=== PATIENT | male | born 1970 | race Caucasian/White ===

== ENCOUNTER 2016-08-06 13:34 | Emergency (ER) | payer MEDICAID ==
[~2016-08-06] VITALS: Ht 193 cm; Wt 93.0 kg
[2016-08-06 13:35] VITALS: BP 115/78; PULSE 92; RESP 17; TEMP 97.8; O2SAT 98
--- NOTE | 2016-08-06 14:49 | PD ---
HPI Chief Complaint: Medical Clearance Time Seen by Provider: 13:00 Travel History International Travel<30 days: No Contact w/Intl Traveler<30days: No Traveled to known affect area: No History of Present Illness HPI 45 year old male with a recent DX of portal artery thrombosis currently bridging from Lovenox to Coumadin. He is on day 4 of a 5 day bridge. Patient just relocated to the area from [place] & forgot his Lovenox dose last night & was concerned about the missed dose so he presents to the ER for ER & INR level. Patient also requesting pain medication for his chronic low back pain & xanax for his anxiety. Both are chronic conditions & reports no change in the pain or severity of the anxiety. He is requesting referral for F/U here in [place]. He denies ABD pain, N/V, petechial rash or excessive bruising, blood in stool or any other medical complaints. PFSH Past Medical History Hx Anticoagulant Therapy: Yes (coumadin) Anxiety: Yes Diabetes: Yes (IDDM) Patient Takes Glucophage: No Inguinal Hernia: Yes (Surgical repair on the (L)) Medical other: Yes ("Blood clot on his liver" takes coumadin for it) Past Surgical History Surgical History: No Previous Surgery Other Surgery: Yes ((L) Ingunial hernia repair) Social History Alcohol Use: Yes (occasionally) Tobacco Use: Yes Substance Use: No Allergies-Medications (Allergen,Severity, Reaction): Coded Allergies: No Known Allergies (Unverified , 08/06/16) Review of Systems Except as stated in HPI: all other systems reviewed are Neg Physical Exam Narrative GENERAL: well appearing white male in no acute distress. SKIN: Warm and dry. No rash, No ecchymosis. HEAD: Normocephalic. EYES: No scleral icterus. No injection or drainage. NECK: Supple, trachea midline. No JVD or lymphadenopathy. CARDIOVASCULAR: Regular rate and rhythm without murmurs, gallops, or rubs. RESPIRATORY: Breath sounds equal bilaterally. No accessory muscle use. GASTROINTESTINAL: Abdomen soft, non-tender, nondistended. MUSCULOSKELETAL: No cyanosis, or edema. BACK: Nontender without obvious deformity. No CVA tenderness. Data Data Last Documented VS Vital Signs Date Time Temp Pulse Resp B/P Pulse Ox O2 Delivery O2 Flow Rate FiO2 08/06/16 13:35 97.8 92 17 115/78 98 Orders Prothrombin Time / Inr (Pt) (08/06/16 14:34) Labs Laboratory Tests Test 08/06/16 14:40 Prothrombin Time 12.0 SEC Prothromb Time International 1.1 RATIO Ratio MDM Medical Decision Making Medical Screen Exam Complete: Yes Emergency Medical Condition: Yes Medical Record Reviewed: Yes Differential Diagnosis medication nonadherence vs subtherapeutic INR Narrative Course 45 year old male with recent diagnosis of portal vein thrombosis bridging from Lovenox to Coumadin missing 1 dose of Lovenox last night. He is here from [place] & will need referral to Primary here. INR in pending. Referral to local clinic will be discussed with patient. patient eloped. Pt became argumentative with nursing staff about wait time & unhappy about not receiving pain medication for his chronic back pain. He and his spouse who was also being seen for a pain related complaint in [place] both left AMA. Germaine Sharma August 06, 2016 14:49 Germaine Sharma August 06, 2016 14:49
[2016-08-06 15:10] LABS: INTERNATIONAL NORMALIZED RATIO 1.1 RATIO
== END 2016-08-06 16:30 | disposition left against medical advice (07) ==
LOC: NEPD 13:34
DX: I81 Portal vein thrombosis (principal); M54.5 Low back pain; G89.29 Other chronic pain; E11.9 Type 2 diabetes mellitus without complications; Z79.01 Long term (current) use of anticoagulants; Z72.0 Tobacco use
CPT/HCPCS: 85610; 99283

== ENCOUNTER 2016-08-29 14:01 | Emergency (ER) | payer MEDICAID ==
--- NOTE | 2016-08-29 14:33 | PD ---
HPI Chief Complaint: gen weakness Time Seen by Provider: 14:29 Travel History International Travel<30 days: No Contact w/Intl Traveler<30days: No History of Present Illness HPI patient c/o generalized weakness for last 6 hrs and has thoracic area back pain as well on left side.. PFSH Past Medical History Hx Anticoagulant Therapy: Yes (coumadin) Anxiety: Yes Diabetes: Yes (IDDM) Inguinal Hernia: Yes (Surgical repair on the (L)) Past Surgical History Other Surgery: Yes ((L) Ingunial hernia repair) Social History Alcohol Use: Yes (occasionally) Tobacco Use: Yes Substance Use: No Allergies-Medications (Allergen,Severity, Reaction): Coded Allergies: No Known Allergies (Unverified , 08/06/16) Reported Meds & Prescriptions Reported Meds & Active Scripts Active Ventolin Hfa 18 GM Inh (Albuterol Sulfate) 90 Mcg/Act Aer 2 Puff INH Q6H PRN Levofloxacin 750 Mg Tablet 750 Mg PO DAILY Review of Systems Except as stated in HPI: all other systems reviewed are Neg Physical Exam Narrative GENERAL: SKIN: Warm and dry. HEAD: Atraumatic. Normocephalic. EYES: Pupils equal and round. No scleral icterus. No injection or drainage. ENT: No nasal bleeding or discharge. Mucous membranes pink and moist. NECK: Trachea midline. No JVD. CARDIOVASCULAR: Regular rate and rhythm. RESPIRATORY: No accessory muscle use. Clear to auscultation. except LLL crackles GASTROINTESTINAL: Abdomen soft, non-tender, nondistended. Hepatic and splenic margins not palpable. MUSCULOSKELETAL: Extremities without clubbing, cyanosis, or edema. No obvious deformities. NEUROLOGICAL: Awake and alert. No obvious cranial nerve deficits. Motor grossly within normal limits. Five out of 5 muscle strength in the arms and legs. Normal speech. PSYCHIATRIC: Appropriate mood and affect; insight and judgment normal. Data Data Last Documented VS Vital Signs Date Time Temp Pulse Resp B/P Pulse Ox O2 Delivery O2 Flow Rate FiO2 08/29/16 16:45 97.4 79 16 117/81 97 Orders Complete Blood Count With Diff (08/29/16 14:33) Basic Metabolic Panel (Bmp) (08/29/16 14:33) Troponin I (08/29/16 14:33) B-Type Natriuretic Peptide (08/29/16 14:33) Lipase (08/29/16 14:33) Urinalysis - C+S If Indicated (08/29/16 14:33) Influenzae A/B Antigen (08/29/16 14:33) Ct Abd/Pel W/O Iv Contrast (08/29/16 14:33) Drug Screen, Random Urine (08/29/16 14:33) Alcohol (Ethanol) (08/29/16 14:33) Chest, Single Ap (08/29/16 14:35) Levofloxacin (Levaquin) (08/29/16 17:30) Labs Laboratory Tests Test 08/29/16 08/29/16 15:00 15:40 White Blood Count 6.0 TH/MM3 Red Blood Count 4.48 MIL/MM3 Hemoglobin 13.9 GM/DL Hematocrit 40.8 % Mean Corpuscular Volume 91.2 FL Mean Corpuscular Hemoglobin 30.9 PG Mean Corpuscular Hemoglobin 33.9 % Concent Red Cell Distribution Width 13.5 % Platelet Count 153 TH/MM3 Mean Platelet Volume 9.0 FL Neutrophils (%) (Auto) 71.6 % Lymphocytes (%) (Auto) 18.2 % Monocytes (%) (Auto) 6.8 % Eosinophils (%) (Auto) 2.7 % Basophils (%) (Auto) 0.7 % Neutrophils # (Auto) 4.3 TH/MM3 Lymphocytes # (Auto) 1.1 TH/MM3 Monocytes # (Auto) 0.4 TH/MM3 Eosinophils # (Auto) 0.2 TH/MM3 Basophils # (Auto) 0.0 TH/MM3 CBC Comment DIFF FINAL Differential Comment Sodium Level 144 MEQ/L Potassium Level 3.7 MEQ/L Chloride Level 108 MEQ/L Carbon Dioxide Level 29.8 MEQ/L Anion Gap 6 MEQ/L Blood Urea Nitrogen 12 MG/DL Creatinine 0.62 MG/DL Estimat Glomerular Filtration 140 ML/MIN Rate Random Glucose 121 MG/DL Calcium Level 8.9 MG/DL Troponin I LESS THAN 0.02 NG/ML B-Type Natriuretic Peptide 10 PG/ML Lipase 129 U/L Ethyl Alcohol Level LESS THAN 3 MG/DL Urine Color YELLOW Urine Turbidity CLEAR Urine pH 6.0 Urine Specific [place] 1.031 Urine Protein TRACE mg/dL Urine Glucose (UA) NEG mg/dL Urine Ketones NEG mg/dL Urine Occult Blood NEG Urine Nitrite NEG Urine Bilirubin NEG Urine Urobilinogen 4.0 MG/DL Urine Leukocyte Esterase NEG Urine RBC LESS THAN 1 /hpf Urine WBC LESS THAN 1 /hpf Urine Squamous Epithelial <1 /hpf Cells Urine Mucus MANY /lpf Microscopic Urinalysis Comment CULT NOT INDICATED Urine Opiates Screen NEG Urine Barbiturates Screen NEG Urine Amphetamines Screen POS Urine Benzodiazepines Screen NEG Urine Cocaine Screen NEG Urine Cannabinoids Screen POS MDM Medical Decision Making Medical Screen Exam Complete: Yes Emergency Medical Condition: Yes Medical Record Reviewed: Yes Differential Diagnosis electrolyte abnl, hypoglycemia, anemia, dehydration, uti, kidney stones Narrative Course patient is not in any distress respiratory, no hypoxemia, no stridor, patient is eating donuts and asking for food Diagnosis Primary Impression: Pneumonia Qualified Code: J18.1 - Pneumonia of left lower lobe due to infectious organism Scripts Albuterol 18 GM Inh (Ventolin Hfa 18 GM Inh)90 Mcg/Act Aer2 Puff INH Q6H PRN ( SHORTNESS OF BREATH) #1 INHALER Ref 0 Prov:Arcadio Hobbs MD 08/29/16 Levofloxacin 750 Mg [id number] Mg PO DAILY #10 TAB Ref 0 Prov:Arcadio Hobbs MD 08/29/16 Disposition: 01 DISCHARGE HOME Condition: Stable Arcadio Hobbs MD Aug 29, 2016 14:33
--- NOTE | 2016-08-29 15:14 | RADRPT ---
EXAM DATE/TIME: 08/29/2016 14:42 [facility] COMPARISON: No previous studies available for comparison. INDICATIONS : General weakness today; cough for 2 weeks. MEDICAL HISTORY : None. SURGICAL HISTORY : None. ENCOUNTER: Initial ACUITY: 1 day PAIN SCORE: 0/10 LOCATION: Bilateral chest FINDINGS: A single portable frontal view the chest shows a patchy parenchymal opacity within the left lung base . Right lung base is clear. Eventration of the right hemidiaphragm. No effusions. Heart is normal in size. CONCLUSION: Left lower lobe infiltrate. Rodrick Romo Jr., MD on August 29, 2016 at 15:12 Board Certified Radiologist. This report was verified electronically.
--- NOTE | 2016-08-29 15:34 | RADRPT ---
EXAM DATE/TIME: 08/29/2016 15:12 [facility] COMPARISON: No previous studies available for comparison. INDICATIONS : General weakness today. ORAL CONTRAST: No oral contrast ingested. RADIATION DOSE: 17.27 CTDIvol (mGy) MEDICAL HISTORY : diabetes SURGICAL HISTORY : inguinal hernia repair ENCOUNTER: Initial ACUITY: 1 day PAIN SCALE: 0/10 LOCATION: Bilateral abdomen TECHNIQUE: Volumetric scanning of the abdomen and pelvis was performed. Using automated exposure control and ad justment of the mA and/or kV according to patient size, radiation dose was kept as low as reasonably achievable to obtain optimal diagnostic quality images. FINDINGS: LOWER LUNGS: Chronic interstitial changes within the lung bases bilaterally. LIVER: The liver has a lobulated contour. A recannulated periumbilical vein is noted. No mass appreciated on this unenhanced study. No ductal dilatation. The gallbladder is decompressed. No calcified gallstone s observed. SPLEEN: Normal size without lesion. PANCREAS: Within normal limits. KIDNEYS: Normal in size and shape. There is no mass, stone, or hydronephrosis. A 5 cm low-density lesion is n oted involving the left lower pole. Hounsfield units are 11. ADRENAL GLANDS: Within normal limits. VASCULAR: There is no aortic aneurysm. BOWEL/MESENTERY: The stomach, small bowel, and colon demonstrate no acute abnormality. There is no free intraperitone al air or fluid. Colonic diverticulosis most abundant within the sigmoid region. No acute inflammator y changes observed. Appendix is normal by CT criteria. ABDOMINAL WALL: Within normal limits. RETROPERITONEUM: There is no lymphadenopathy. BLADDER: No wall thickening or mass. REPRODUCTIVE: Within normal limits. INGUINAL: There is no lymphadenopathy or hernia. MUSCULOSKELETAL: Within normal limits for patient age. CONCLUSION: 1. Cirrhosis. No ascites or splenomegaly. 2. Low-density lesion involving the left kidney likely relating to a cyst. 3. Colonic diverticulosis. Rodrick Romo Jr., MD on August 29, 2016 at 15:26 Board Certified Radiologist. This report was verified electronically.
[2016-08-29 16:08] LABS: BLOOD, URINE NEG (NEG); COMMENT (UR) CULT NOT INDICATED; CULTURE IF INDICATED CULT NOT INDICATED; GLUCOSE,URINE NEG (NEG); KETONE, URINE NEG (NEG); MUCUS URINE MANY /lpf (OCC); NITRITE,URINE NEG (NEG); SQUAMOUS EPITHELIAL CELL URINE <1 /hpf (0-5); URINE COLOR YELLOW (YELLW/STRAW)
[2016-08-29 16:09] LABS: AUTOMATED NEUTROPHIL # 4.3 TH/MM3 (1.8-7.7); BASOPHIL % 0.7 % (0.0-2.0); EOSINOPHIL # 0.2 TH/MM3 (0-0.4); EOSINOPHIL % 2.7 % (0.0-4.0); HEMATOCRIT 40.8 % (39.0-51.0); HEMO FLAGS DIFF FINAL; LYMPH % 18.2 % (9.0-44.0); LYMPHOCYTE # 1.1 TH/MM3 (1.0-4.8); MEAN CELL VOLUME 91.2 FL (80.0-100.0); MEAN CORPUSCULAR HEMOGLOBIN 30.9 PG (27.0-34.0); MEAN CORPUSCULAR HGB CONC 33.9 % (32.0-36.0); MONO % 6.8 % (0.0-8.0); NEUT % 71.6 % (16.0-70.0); PLATELET COUNT 153 TH/MM3 (150-450); RED BLOOD COUNT 4.48 MIL/MM3 (4.50-5.90); RED CELL DISTRIBUTION WIDTH 13.5 % (11.6-17.2)
[2016-08-29 16:15] LABS: AMPHETAMINE, URINE POS (NEG); BARBITURATES, URINE NEG (NEG); COCAINE, URINE NEG (NEG)
[2016-08-29 16:45] VITALS: BP 117/81; PULSE 79; RESP 16; TEMP 97.4; O2SAT 97
[2016-08-29 16:52] LABS: ANION GAP 6 MEQ/L (5-15); BICARBONATE 29.8 MEQ/L (21.0-32.0); BLOOD UREA NITROGEN 12 MG/DL (7-18); CHLORIDE 108 MEQ/L (98-107); GLOMERULAR FILTRATION RATE 140 ML/MIN (>89); POTASSIUM 3.7 MEQ/L (3.5-5.1); SODIUM (NA) 144 MEQ/L (136-145)
[2016-08-29] MEDS ORDERED: LEVOFLOXACIN 750 MG TAB PO ONE (17:30)
[2016-08-29] MEDS ORDERED: LEVO750T3 PO (17:34)
[2016-08-29] MEDS ORDERED: VENTAER INH (17:34)
[2016-08-29 17:46] VITALS: BP 113/68
== END 2016-08-29 18:18 | disposition home or self-care (01) ==
LOC: NEPC 14:01
DX: J18.1 Lobar pneumonia, unspecified organism (principal); E11.9 Type 2 diabetes mellitus without complications; Z79.01 Long term (current) use of anticoagulants; Z72.0 Tobacco use
CPT/HCPCS: 71010; 74176; 80048; 80307; 81001; 83690; 83880; 84484; 85025

== ENCOUNTER 2016-09-16 12:48 | Emergency (ER) | payer MEDICAID ==
[~2016-09-16] VITALS: Ht 193 cm; Wt 90.0 kg
[~2016-09-16 12:48] MED LIST: LEVO750T3 PO; VENTAER INH
[2016-09-16 13:15] VITALS: BP 118/70; PULSE 96; RESP 16; TEMP 98.5; O2SAT 97
--- NOTE | 2016-09-16 13:59 | PD ---
HPI Chief Complaint: Wound/Suture/Staple Re-Check Time Seen by Provider: 13:59 Travel History International Travel<30 days: No Contact w/Intl Traveler<30days: No Traveled to known affect area: No History of Present Illness HPI 46 YO M presents to the ED via EMS for evaluation of blistering of the bottoms of both feet. Patient states he has been walking a lot lately. He denies fever , chills, numbness, tingling, weakness of the extremities. He endorses history of [id number] diabetes. PFSH Past Medical History Hx Anticoagulant Therapy: Yes (coumadin) Anxiety: Yes Diabetes: Yes (IDDM) Inguinal Hernia: Yes (Surgical repair on the (L)) Past Surgical History Other Surgery: Yes ((L) Ingunial hernia repair) Social History Alcohol Use: Yes (occasionally) Tobacco Use: Yes Substance Use: No Allergies-Medications (Allergen,Severity, Reaction): Coded Allergies: Penicillin (Verified Allergy, Severe, 09/16/16) Tramadol (Verified Allergy, Severe, 09/16/16) Reported Meds & Prescriptions Reported Meds & Active Scripts Active Review of Systems Except as stated in HPI: all other systems reviewed are Neg Physical Exam Narrative GENERAL: Well-nourished, well-developed white male in no acute distress.. SKIN: Focused skin assessment warm/dry. There are superficial, old appearing blisters on the distal third of the plantar aspect of bilateral feet. The blisters are open, nondraining, no erythema, no edema, no lymphatic streaking noted. HEAD: Normocephalic. EYES: No scleral icterus. No injection or drainage. NECK: Supple, trachea midline. No JVD or lymphadenopathy. CARDIOVASCULAR: Regular rate and rhythm without murmurs, gallops, or rubs. RESPIRATORY: Breath sounds equal bilaterally. No accessory muscle use. GASTROINTESTINAL: Abdomen soft, non-tender, nondistended. MUSCULOSKELETAL: No cyanosis, or edema. Patient retains full, active ROM of BLE. Neurovascularly intact. BACK: Nontender without obvious deformity. No CVA tenderness. Data Data Last Documented VS Vital Signs Date Time Temp Pulse Resp B/P Pulse Ox O2 Delivery O2 Flow Rate FiO2 09/16/16 13:15 98.5 96 16 118/70 97 Room Air MDM Medical Decision Making Medical Screen Exam Complete: Yes Emergency Medical Condition: Yes Differential Diagnosis foot blister versus chronic foot wound versus malingering versus other Narrative Course 46 YO M presents to the ED via EMS for evaluation of blistering of the bottoms of both feet. Patient states he has been walking a lot lately. He endorses history of [id number] diabetes. He denies fever, chills, numbness, tingling, weakness of the extremities. Patient is homeless. BGL ~90 per EMS. Vitals reviewed. Physical exam reveals blisters of the balls of bilateral feet without signs of infection. This is certainly not a diabetic foot wound. I suspected malingering. The patient and his girlfriend came in via EMS together. He was provided a fresh pair socks and discharged to follow up with the [facility]. He is stable and discharged home. Diagnosis Primary Impression: Blister of left foot without infection Qualified Code: S90.822A - Blister of left foot without infection, initial encounter Additional Impression: Blister of right foot without infection Qualified Code: S90.821A - Blister of right foot without infection, initial encounter Referrals: Director Strategy Patient Instructions: Blister (ED), General Instructions Additional Instructions: Rest, hydrate. Keep the wound clean, dry. Change your socks often. Follow up with the [facility]. Return to the ED for any urgent or emergent medical condition. Disposition: 01 DISCHARGE HOME Condition: Stable Chela Mcneil Sep 16, 2016 13:59
== END 2016-09-16 15:18 | disposition home or self-care (01) ==
LOC: NEPD 12:48
DX: S90.822A Blister (nonthermal), left foot, initial encounter (principal); S90.821A Blister (nonthermal), right foot, initial encounter; E11.9 Type 2 diabetes mellitus without complications; Z72.0 Tobacco use; Z79.01 Long term (current) use of anticoagulants; Z86.59 Personal history of other mental and behavioral disorders; X58.XXXA Exposure to other specified factors, initial encounter
CPT/HCPCS: 99283

== ENCOUNTER 2016-12-28 10:10 | Emergency (ER) | payer MEDICAID, OTHER ==
[~2016-12-28] VITALS: Ht 193 cm; Wt 90.0 kg
[2016-12-28 10:11] VITALS: BP 132/80; PULSE 78; RESP 18; TEMP 97.9; O2SAT 97
[2016-12-28] MEDS ORDERED: BENZ100 PO (10:39)
[2016-12-28] MEDS ORDERED: AZIT500T2 PO (10:39)
--- NOTE | 2016-12-28 10:40 | PD ---
HPI Chief Complaint: Cold / Flu Symptoms Time Seen by Provider: 10:38 Travel History International Travel<30 days: No Contact w/Intl Traveler<30days: No Traveled to known affect area: No History of Present Illness HPI 46-year-old male presents to emergency Department with complaint of cough, nasal congestion, right ear pain, sore throat, chest congestion times one week. Denies chest tightness, shortness of breath, wheezing. Denies fevers, vomiting. Reports feeling chills. Reports body aches. Has taken over-the- counter medication for symptom management. Symptoms are mild in severity. His fiance sick with similar symptoms. Allergies to penicillin and tramadol. Has no other medical complaints. No other modifying factors or associated signs and symptoms. PFSH Past Medical History Hx Anticoagulant Therapy: Yes (coumadin) Anxiety: Yes Diabetes: Yes Inguinal Hernia: Yes (Surgical repair on the (L)) Past Surgical History Other Surgery: Yes ((L) Ingunial hernia repair) Social History Alcohol Use: Yes (occasionally) Tobacco Use: Yes Substance Use: No Allergies-Medications (Allergen,Severity, Reaction): Coded Allergies: penicillin G (Unverified Allergy, Severe, 12/28/16) tramadol (Unverified Allergy, Severe, 12/28/16) Reported Meds & Prescriptions Reported Meds & Active Scripts Active Azithromycin 250 Mg Tab 250 Mg PO DIRECTED Take 2 tabs (500 mg) on day 1 then 1 tab daily x 4 days. Ibuprofen 800 Mg Tab 800 Mg PO Q6HR PRN Tessalon Perles (Benzonatate) 100 Mg Cap 100 Mg PO TID PRN Review of Systems Except as stated in HPI: all other systems reviewed are Neg Physical Exam Narrative GENERAL: Well-nourished, well-developed male patient, in no acute distress; afebrile, nontoxic-appearing SKIN: Warm and dry. No rash. HEAD: Atraumatic. Normocephalic. EYES: Pupils equal and round. No scleral icterus. No injection or drainage. ENT: Mucosa pink and moist. No erythema or exudates. No uvular edema. No uvular , palatal, or tonsillar deviation. Airway patent. EARS: Bilateral pinnae and external canals appear within normal limits. Bilateral tympanic membranes without erythema, dullness or perforation. NECK: Trachea midline. No lymphadenopathy. CARDIOVASCULAR: Regular rate and rhythm. No murmur appreciated. RESPIRATORY: No accessory muscle use. Clear to auscultation. Breath sounds equal bilaterally. No retractions or tachypnea. GASTROINTESTINAL: Round. MUSCULOSKELETAL: No obvious deformities. No clubbing. No cyanosis. No edema. NEUROLOGICAL: Awake and alert. Oriented 3. No obvious cranial nerve deficits. Motor grossly within normal limits. Normal speech. Moves all extremities. 5/5 strength to all extremities. PSYCHIATRIC: Appropriate mood and affect; insight and judgment normal. Data Data Last Documented VS Vital Signs Date Time Temp Pulse Resp B/P (MAP) Pulse Ox O2 Delivery O2 Flow Rate FiO2 12/28/16 10:11 97.9 78 18 132/80 (97) 97 Room Air MDM Medical Decision Making Medical Screen Exam Complete: Yes Emergency Medical Condition: Yes Medical Record Reviewed: Yes Differential Diagnosis Viral illness, upper respiratory infection, sinusitis, bronchitis Narrative Course 46-year-old male physical examination consistent with URI. Patient has been sick for one week. He is afebrile and a nontoxic-appearing. Physical exam is unremarkable. I will prescribe antibiotics for length of illness. Azithromycin , Tessalon Perles, ibuprofen prescribed for home. Instructed patient to follow up with primary care provider. Patient verbalizes understanding and agreement with treatment plan. Patient is medically cleared and stable for discharge. Discussed reasons to return to the emergency department. Patient agrees with treatment plan. The patients vital signs are stable and the patient is stable for outpatient follow-up and treatment. Patient discharged home, stable and in no acute distress. Diagnosis Primary Impression: URI (upper respiratory infection) Qualified Codes: J06.9 - Acute upper respiratory infection, unspecified Referrals: [facility] Primary Care Physician Patient Instructions: General Instructions, Upper Respiratory Infection (ED) Additional Instructions: Antibiotics as prescribed and complete full course Ibuprofen or Tylenol as instructed and as needed for fever/pain Qqiu-mex-dtutkby cough and cold medications as directed and as needed for symptom management Get plenty of sleep/rest Drink plenty of fluids to prevent dehydration; popsicles and Gatorade Use an air humidifier/turn off ceiling fans Follow-up with primary care provider Return immediately to the emergency department with worsening of symptoms Med/Other Pt SpecificInfo: Prescription(s) given Scripts Azithromycin (Azithromycin) 250 Mg Tab 250 MG PO DIRECTED for Infection, #6 TAB 0 Refills Take 2 tabs (500 mg) on day 1 then 1 tab daily x 4 days. Prov: Dee Allen 12/28/16 Ibuprofen (Ibuprofen) 800 Mg Tab 800 MG PO Q6HR Y for PAIN, #30 TAB 0 Refills Prov: Dee Allen 12/28/16 Benzonatate (Tessalon Perles) 100 Mg Cap 100 MG PO TID Y for COUGH, #10 CAP 0 Refills Prov: Dee Allen 12/28/16 Disposition: 01 DISCHARGE HOME Condition: Stable Dee Allen Dec 28, 2016 10:40
[2016-12-28] MEDS ORDERED: IBUP800T23 PO (10:41)
[2016-12-28] MEDS ORDERED: AZIT250T3 PO (10:43)
== END 2016-12-28 10:52 | disposition home or self-care (01) ==
LOC: NEPK 10:10
DX: J06.9 Acute upper respiratory infection, unspecified (principal); F41.9 Anxiety disorder, unspecified; E11.9 Type 2 diabetes mellitus without complications; Z72.0 Tobacco use; Z79.01 Long term (current) use of anticoagulants; Z88.0 Allergy status to penicillin; Z88.5 Allergy status to narcotic agent
CPT/HCPCS: 99284